=== PATIENT | female | born 1975 | race Caucasian/White ===

== ENCOUNTER 2019-05-30 22:41 | Emergency (ER) | payer MEDICARE ==
[2019-05-30 22:47] VITALS: PULSE 85; O2SAT 99
[2019-05-30 23:42] LABS: Absolute Neutrophil Ct (ANC) 6.99 (1.4-6.9); BASOPHIL % 0.1 % (0.0-0.4); Basophil (Absolute #) 0.02 (0-0.4); Eosinophil % 3.2 % (0.00-5.0); Eosinophil (Absolute #) 0.45 (0-0.5); Hematocrit 38.4 % (35-47); Hemoglobin 12.5 gm/dl (12.0-16.0); Lymphocyte (Absolute #) 5.32 (1.0-4.6); Lymphocytes % 37.9 % (24.0-44.0); Mean Cell Volume 90.8 fl (78-100); Mean Corpuscular Hemoglobin 29.6 pg (26-32); Mean Corpuscular Hgb Concent. 32.6 g/dl (32-36); Mean Platelet Volume 11.6 fl (6-9.5); Monocyte (Absolute #) 1.25 (0.0-1.3); Monocytes % 8.9 % (0.0-12.0); Neutrophil % 49.9 % (36.0-66.0); Platelet Count 361 K/mm3 (150-450); Red Blood Count 4.23 M/mm3 (4.1-5.4); Red Cell Distribution Width 14.2 % (11.5-14.0)
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
[2019-05-30 23:48] LABS: ALBUMIN 4.1 g/dL (3.5-5.0); ALKALINE PHOSPHATASE 80 U/L (38-126); BLOOD UREA NITROGEN 8 mg/dL (7-17); CHLORIDE 104 mmol/L (98-107); Calcium 9.2 mg/dL (8.4-10.2); Carbon Dioxide 29 mmol/L (22-30); Creatinine 1 0.61 mg/dL (0.52-1.04); Glucose 117 mg/dL (74-106); Potassium 3.1 mmol/L (3.5-5.1); SGOT/AST 28 U/L (14-36); SGPT/ALT 15 U/L (0-35); SODIUM 141 mmol/L (137-145); Total Protein 7.6 g/dL (6.3-8.2)
[2019-05-31 00:49] LABS: Slide Review 1 YES
[2019-05-31 02:19] LABS: Appearance SLIGHTLY CLOUDY (CLEAR); Bilirubin NEGATIVE (NEGATIVE); Blood NEGATIVE Ery/ul (0-5); Epithelial Cells RARE /HPF (FEW); Glucose NEGATIVE (NEGATIVE); Ketones NEGATIVE (NEGATIVE); Leukocyte Esterase NEGATIVE (NEGATIVE); Mucus SLIGHT /HPF (NEGATIVE); Nitrite NEGATIVE (NEGATIVE); Protein,Urine Dip NEGATIVE (Negative); Specific Gravity 1.008 (1.005-1.025); Urobilinogen NEGATIVE mg/dL (0-1)
[2019-05-31 02:56] VITALS: BP 140/96
--- NOTE | 2019-05-31 10:41 | XRAY ---
Exam: AP view of the pelvis from 05/30/2019. Comparison: None. Indication: Known lateral tibial plateau fracture from earlier left knee series on same date. Findings: 2 AP images of the pelvis were obtained. The upper margin of the right superior iliac crest was partially cut off on one of the images. I see no acute fracture or dislocation of the pelvis. No other focal bone lesion is seen. The sacroiliac joints and hip joint spaces appear essentially unremarkable. The hips appear grossly intact. Impression: 1. No acute fracture or dislocation of the pelvis is seen.
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
== END 2019-05-31 04:18 | disposition home or self-care (01) ==
LOC: ED 22:41
DX: S82.142A Displaced bicondylar fracture of left tibia, initial encounter for closed fracture (principal); V89.2XXA Person injured in unspecified motor-vehicle accident, traffic, initial encounter; M79.662 Pain in left lower leg; M79.661 Pain in right lower leg; S80.812A Abrasion, left lower leg, initial encounter; J44.9 Chronic obstructive pulmonary disease, unspecified
CPT/HCPCS: 36000; 36415; 70450; 72170; 73562; 73590; 73700; 80053; 81001; 81025; 85025; 99285; L1830